=== PATIENT | male | born 1950 | race Caucasian/White ===

== ENCOUNTER 2018-05-07 13:57 | Observation (INO) | payer MEDICARE ==
[2018-05-07 14:39] LABS: #Basophils 0.1 thou/uL (0.0-0.2); #Eosinphils 0.1 thou/uL (0.0-0.7); #Lymphocytes 2.4 thou/uL (1.20-3.40); #Monocytes 0.5 thou/uL (0.11-0.59); %Basophils 0.6 % (0.0-1.0); %Eosinophils 1.6 % (0.0-10.0); %Lymphocytes 26.3 % (21.0-51.0); %Monocytes 5.6 % (0.0-10.0); %Neutrophils 65.9 % (42.0-75.0); Hemoglobin 12.9 g/dL (14.0-18.0); Mean Corpuscular HGB CONC 32.3 g/dL (32.0-36.0); Mean Corpuscular Hemoglobin 30.4 pg (27.0-31.0); Mean Corpuscular Volume 93.9 fL (78.0-98.0); Platelet Count 200 thou/uL (130-400); RBC Distribution Width 12.2 % (11.5-14.5); Red Blood Cell (RBC) Count 4.24 mill/uL (4.70-6.10); White Blood Cell (WBC) Count 9.1 thou/uL (4.8-10.8)
[2018-05-07 14:46] LABS: INR-International Normal Ratio 1.2; PTT 25.8 SEC (22.9-36.1); Prothrombin Time 14.8 SEC (12.0-14.7)
[2018-05-07 15:00] LABS: ALT (SGPT) 15 U/L (8-55); AST (SGOT) 14 U/L (5-34); Albumin 3.8 g/dL (3.4-4.8); Alkaline Phosphatase 62 U/L (40-150); Anion Gap 11 mmol/L (10-20); BUN (Urea Nitrogen) 25 mg/dL (8.4-25.7); Bilirubin, Total 0.8 mg/dL (0.2-1.2); Calc. Creatinine Clearance 0 mL/min (70-130); Calcium 8.5 mg/dL (7.8-10.44); Carbon Dioxide 23 mmol/L (23-31); Chloride 107 mmol/L (98-107); Estimated GFR-MDRD 52; Globulin 2.1 g/dL (2.4-3.5); Glucose 153 mg/dL (80-115); Potassium 4.2 mmol/L (3.5-5.1); Protein, Total 5.9 g/dL (5.8-8.1); Sodium 137 mmol/L (136-145)
[2018-05-07] MEDS ORDERED: GoLYTELY 4,000 ml Bottle PO SCH (15:30)
[2018-05-07] MEDS ORDERED: Acetaminophen 325 MG TAB PO PRN (15:59)
[2018-05-07 17:45] LABS: Hemoglobin 13.1 g/dL (14.0-18.0)
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
--- NOTE | 2018-05-07 19:16 | CON ---
DATE OF CONSULTATION: 05/07/2018 HISTORY: Patient is a 67-year-old male who underwent a colonoscopy with polypectomy on . He had a 4-mm polyp in the ascending colon. He was doing well until today when he was eati ng a hamburger. He had multiple bowel movements of bright red blood. This was associated with light headedness and near syncope, but he did not pass out. He denies any nausea, vomiting, any abdominal pain, any other complaints. PAST MEDICAL HISTORY: Significant for hypertension, myocardial infarction, hemorrhoids and cardiac s tents. ALLERGIES: SULFA. MEDICATIONS: Coreg 12.5 mg 1 p.o. daily, rosuvastatin 10 mg p.o. daily, aspirin 324 mg 1 p.o. daily, Plavix 75 mg 1 p.o. daily, lisinopril 20 mg 1 p.o. daily, Norvasc 5 mg p.o. daily. FAMILY HISTORY: Significant for mother with colon cancer. REVIEW OF SYSTEMS: Ten systems were reviewed and were negative except for above. PHYSICAL EXAM: GENERAL: Shows a well-developed, well-nourished white male in no acute distress. VITAL SIGNS: Stable. He is afebrile. HEENT: Unremarkable. NECK: Supple. CHEST: Clear. CARDIOVASCULAR: Regular rate and rhythm. ABDOMEN: Soft, nontender, without organomegaly or masses. Bowel sounds are present and normoactive. RECTAL: Deferred. EXTREMITIES: Normal. NEUROLOGIC: Nonfocal. LABORATORY DATA: Hemoglobin 12.9, hematocrit 39.8. PT is 14.8 with an INR of 1.2. Chemistries show creatinine 1.37, glucose 153. ASSESSMENT: 1. Post-polypectomy bleed. 2. Coronary artery disease, on aspirin and Plavix. RECOMMENDATIONS: Colonoscopy in a.m.
[2018-05-07] MEDS: Sodium Chloride 0.9% 1,000 ML IV SCH (20:14)
[2018-05-07 20:37] VITALS: BMI 25.2
[2018-05-07 21:20] LABS: Hemoglobin 12.4 g/dL (14.0-18.0)
[2018-05-08 01:26] LABS: Hemoglobin 11.6 g/dL (14.0-18.0)
[2018-05-08] MEDS: Sodium Chloride 0.9% 1,000 ML IV SCH (05:59)
[2018-05-08 06:07] LABS: Hemoglobin 11.9 g/dL (14.0-18.0)
[2018-05-08 06:23] LABS: Anion Gap 10 mmol/L (10-20); BUN (Urea Nitrogen) 14 mg/dL (8.4-25.7); Calc. Creatinine Clearance 100 mL/min (70-130); Calcium 8.5 mg/dL (7.8-10.44); Carbon Dioxide 25 mmol/L (23-31); Chloride 108 mmol/L (98-107); Estimated GFR-MDRD 86; Glucose 96 mg/dL (80-115); Potassium 3.8 mmol/L (3.5-5.1); Sodium 139 mmol/L (136-145)
[2018-05-08 10:01] LABS: Hemoglobin 11.2 g/dL (14.0-18.0)
--- NOTE | 2018-05-08 10:30 | OP ---
DATE OF PROCEDURE: 05/08/2018 PROCEDURE: After informed consent was obtained, the patient placed in the left lateral decubitus pos ition. Anesthesia administered per the Anesthesia Department. Forward-viewing colonoscope was inser rosales into the rectum after perianal inspection and rectal exam were normal and passed to the cecum wit h ease. The cecum, ileocecal valve, and appendiceal orifice were normal. The terminal ileum was nor mal. The prep was good. In the ascending colon, a post-polypectomy ulcer was noted in this ulcer wa s a visible vessel, no active bleeding was seen. A 10-[place]orean BICAP electrocautery device was used to ablate the vessel. The remainder of the ascending, transverse, descending, sigmoid, and rectum were normal. Retroflexion in rectum was normal. ASSESSMENT: 1. Post-polypectomy ulcer with a visible vessel -- status post control of hemorrhage with a 10-Frenc h BICAP probe. 2. Otherwise, normal ileal colonoscopy. RECOMMENDATIONS: 1. Stable for discharge from GI standpoint. 2. Hold aspirin and Plavix for 1 week.
[2018-05-08 11:35] VITALS: BP 146/93; TEMP 97.7
[2018-05-08] MEDS ORDERED: PROPOFOL 200 MG/20 ML VIAL ONE (12:47)
== END 2018-05-08 11:33 | disposition home or self-care (01) ==
LOC: ERS 13:57 → SURG A 15:12
PROVIDERS: ADMIT Internal Medicine; ATTEND Internal Medicine
PROC: 0D5K8ZZ Destruction of Ascending Colon, Via Natural or Artificial Opening Endoscopic (ICD-10-PCS; principal; 2018-05-08)
DX: K91.840 Postprocedural hemorrhage of a digestive system organ or structure following a digestive system procedure (principal); I25.10 Atherosclerotic heart disease of native coronary artery without angina pectoris; I10 Essential (primary) hypertension; E78.5 Hyperlipidemia, unspecified; I25.2 Old myocardial infarction; M54.10 Radiculopathy, site unspecified; Z87.891 Personal history of nicotine dependence; Z79.02 Long term (current) use of antithrombotics/antiplatelets; Z79.82 Long term (current) use of aspirin; Z79.899 Other long term (current) drug therapy; Z88.2 Allergy status to sulfonamides; Z95.5 Presence of coronary angioplasty implant and graft; Z98.1 Arthrodesis status; Z98.890 Other specified postprocedural states
CPT/HCPCS: 36430; 45388; 80048; 80053; 82274; 85014 ×3; 85018 ×3; 85025; 85610; 85730; 86850; 86900; 86901; 86920; 96360; 96361 ×2; 99285; G0378; P9016; P9035; 36415; J2704

== ENCOUNTER 2018-11-17 09:23 | Outpatient (CLI) | payer MEDICARE ==
--- NOTE | 2018-11-17 11:38 | CT ---
FCT ABDOMEN AND PELVIS WITH AND WITHOUT IV CONTRAST: HISTORY: Prostate cancer. Hematuria. FINDINGS: Each renal collecting system, ureter, and the urinary bladder are decompressed without stone evident. No filling defects are apparent within the urinary system on the delayed images. Tiny cyst along the lateral cortex superior pole left kidney. No solid renal masses are apparent. Fusiform ectasia of the lower abdominal aorta measuring up to 2.9 cm. Moderate arterial calcification . Along the anterior margin of the left internal iliac lymph node chain, there are 2 conspicuous lymph nodes, each measuring 0.7 cm greatest diameter. The distal third of the appendix, folded along the right posterolateral paracolic gutter, is filled w ith fluid and dilated up to 1.3 cm. A tiny calcification is present within the appendiceal apex. Ther e is no stranding in the adjacent fat or significant wall thickening apparent. IMPRESSION: 1. The left internal iliac lymph nodes, detailed above, are not significantly enlarged based on CT c riteria, but must be viewed with some degree of concern given the conspicuity and recent diagnosis of prostate cancer. 2. Fluid distention of the distal appendix without other signs of inflammation. Small appendicolith is present. The appearance is that of distal appendiceal obstruction. Patient would be predisposed to acute appendicitis. 3. Atherosclerosis with fusiform ectasia of the lower abdominal aorta. Transcribed Date/Time: 11/17/2018 11:47 AM
--- NOTE | 2018-11-17 13:59 | NM ---
WHOLE BODY BONE SCAN: CLINICAL HISTORY: Malignant neoplasm of prostate RADIOPHARMACEUTICAL: 31 mCi technetium 99m MDP, IV. FINDINGS: There is normal distribution of radiotracer activity. No scintigraphic abnormalities to indicate osse ous metastatic disease are present. There is mild scattered degenerative activity of the appendicular skeleton. IMPRESSION: No scintigraphic evidence of metastatic disease within the osseous structures. Transcribed Date/Time: 11/17/2018 2:07 PM
[2018-11-17] MEDS ORDERED: Iopamidol 370 76% 100 ML VIAL ONE (14:46)
== END 2018-11-17 09:24 | disposition home or self-care (01) ==
LOC: NM 09:23
PROVIDERS: ATTEND Urology
DX: C61 Malignant neoplasm of prostate (principal); I77.811 Abdominal aortic ectasia; I70.0 Atherosclerosis of aorta; K38.8 Other specified diseases of appendix
CPT/HCPCS: 74178; 78306; 82565; A9503

== ENCOUNTER 2018-12-16 08:19 | Outpatient (CLI) | payer MEDICARE ==
--- NOTE | 2018-12-16 11:02 | MRI ---
MR OF THE PELVIS WITH AND WITHOUT CONTRAST INDICATION: Prostate Cancer COMPARISON: CT the abdomen and pelvis dated 11/17/2018 and whole-body bone scan dated 11/27/2018 TECHNIQUE: Multiplanar, multisequence MR images were obtained of the pelvis with and without IV contr ast. 18 cc of MultiHance was utilized for the examination. The examination was reviewed on a separate Conzoom 3-D workstation for multiplanar metric evaluation. FINDINGS: Prostate size: The prostate measured 4.0 x 3.9 x 3.5cm. 28.47 cc. Peripheral zone: No area of restricted diffusion is seen within the peripheral zone. Central zone: There is a 2.9 x 2.1 cm low T2 signal lesion involving the medial left mid gland, left medial base, left lateral base and extending into the proximal left seminal vesicle. The lesions demonstrates restricted diffusion. Neural vasculature: No evidence of neurovascular invasion Regional lymphadenopathy: There are mildly prominent left internal iliac pelvic lymph nodes measuring 6.5 and 7 mm respectively on image 24 of series 8. No additional enlarged lymph nodes are evident. Dynamic contrast enhancement: The lesion previously identified demonstrates early enhancement that do es progress but does not washout. Therefore, the dynamic contrast enhancement will be labeled as negative. Osseous structures: There is a 1.5 cm low T1 signal intensity lesion within the proximal left femur a t the level of the lesser trochanter. No area of increased radiotracer accumulation is seen on the prior bone scan in this region. Retrospective review of the CT evaluation from 11/27/2018 demonstrates no definite focal lesion. Additional findings: None.. IMPRESSION: 1. PIRADS 5- Very High (clinically significant cancer is highly likely to be present.) 2. Mildly prominent left internal iliac pelvic lymph nodes is suspicious for regional malignant lymph adenopathy. 3. There is a low T1 signal intensity lesion within the proximal left femur that was not identified o n the prior bone scan or prior CT abdomen pelvis is suspicious for a new osseous metastatic lesion. Recommend consideration for repeat whole body bone scan to reevaluate this lesion and any new additio nal lesions that may be present within the skeletal system.
[2018-12-16] MEDS ORDERED: Gadobenate Dimeglumine 529 MG/1 ML (20ML VIAL) ONE (13:08)
== END 2018-12-16 08:20 | disposition home or self-care (01) ==
LOC: TBSIIMAG 08:19
PROVIDERS: ATTEND Urology
DX: C61 Malignant neoplasm of prostate (principal); R93.7 Abnormal findings on diagnostic imaging of other parts of musculoskeletal system
CPT/HCPCS: 72197; A9577

== ENCOUNTER 2018-12-23 10:20 | Outpatient (CLI) | payer MEDICARE ==
--- NOTE | 2018-12-23 14:21 | NM ---
WHOLE BODY BONE SCAN: HISTORY: Prostate cancer, malignant neoplasm of prostate RADIOPHARMACEUTICAL: 33 mCi technetium 99m-MDP injected intravenously COMPARISON:11/17/2018 CORRELATION: MRI pelvis 12/16/[address] abdomen and pelvis 11/17/2018 FINDINGS: Mild scattered degenerative activity in the appendicular skeleton is again seen.. No other abnormal areas of tracer localization is seen in the skeleton to suggest metastatic disease. Tracer excretion through the kidneys is within normal limits. IMPRESSION: No scintigraphic evidence of osseous metastatic disease.
== END 2018-12-23 10:21 | disposition home or self-care (01) ==
LOC: NM 10:20
PROVIDERS: ATTEND Urology
DX: C61 Malignant neoplasm of prostate (principal)
CPT/HCPCS: 78306; A9503

== ENCOUNTER 2019-04-27 18:34 | Emergency (ER) | payer MEDICARE ==
[2019-04-27 19:03] LABS: #Basophils 0.1 thou/uL (0.0-0.2); #Eosinphils 0.4 thou/uL (0.0-0.7); #Lymphocytes 0.9 thou/uL (1.20-3.40); #Monocytes 0.6 thou/uL (0.11-0.59); #Neutrophils 2.4 thou/uL (1.40-6.50); %Basophils 1.4 % (0.0-1.0); %Eosinophils 9.8 % (0.0-10.0); %Monocytes 13.9 % (0.0-10.0); %Neutrophils 53.9 % (42.0-75.0); Hemoglobin 12.8 g/dL (14.0-18.0); Mean Corpuscular HGB CONC 35.2 g/dL (32.0-36.0); Mean Corpuscular Hemoglobin 32.8 pg (27.0-31.0); Mean Corpuscular Volume 93.1 fL (78.0-98.0); Mean Platelet Volume 7.4 fL (7.4-10.4); Platelet Count 151 thou/uL (130-400); RBC Distribution Width 12.7 % (11.5-14.5); Red Blood Cell (RBC) Count 3.91 mill/uL (4.70-6.10); White Blood Cell (WBC) Count 4.5 thou/uL (4.8-10.8)
[2019-04-27 19:25] LABS: ALT (SGPT) 14 U/L (8-55); AST (SGOT) 14 U/L (5-34); Albumin 4.2 g/dL (3.4-4.8); Alkaline Phosphatase 81 U/L (40-150); Anion Gap 10 mmol/L (10-20); BUN (Urea Nitrogen) 20 mg/dL (8.4-25.7); Bilirubin, Total 0.5 mg/dL (0.2-1.2); Calc. Creatinine Clearance 0 mL/min (70-130); Calcium 9.3 mg/dL (7.8-10.44); Carbon Dioxide 28 mmol/L (23-31); Chloride 107 mmol/L (98-107); Estimated GFR-MDRD 64; Globulin 1.9 g/dL (2.4-3.5); Glucose 89 mg/dL (80-115); Potassium 3.8 mmol/L (3.5-5.1); Protein, Total 6.1 g/dL (5.8-8.1); Sodium 141 mmol/L (136-145)
--- NOTE | 2019-04-27 19:29 | RAD ---
EXAM: Chest 2 views: HISTORY: Chest pain COMPARISON: None. FINDINGS: There is a normal-sized cardiomediastinal silhouette. There is no evidence of consolidation, mass, or pleural effusion. Degenerative changes and postsurgical changes are seen in the spine. IMPRESSION: No evidence of acute cardiopulmonary disease
--- NOTE | 2019-05-02 13:52 | EKG ---
Test Reason : Blood Pressure : / mmHG Vent. Rate : 065 BPM Atrial Rate : 065 BPM P-R Int : 154 ms QRS Dur : 080 ms QT Int : 410 ms P-R-T Axes : 057 042 051 degrees QTc Int : 426 ms Normal sinus rhythm Normal ECG No ST elevation/MD Confirmed by KIMBERLY VANG, MAYTE ([id number]), online editor AMPARO EISENBERG ([id number] on 05/02/2019 1:52:08 PM Referred By: Confirmed By:MAYTE HARRIS MD
== END 2019-04-27 21:15 | disposition home or self-care (01) ==
LOC: ERS 18:34
DX: R07.89 Other chest pain (principal); I10 Essential (primary) hypertension; E78.00 Pure hypercholesterolemia, unspecified; Z87.891 Personal history of nicotine dependence; Z95.5 Presence of coronary angioplasty implant and graft
CPT/HCPCS: 36415; 71046; 80053; 82550; 84484; 85025; 93005

== ENCOUNTER 2020-09-15 08:52 | Outpatient (CLI) | payer MEDICARE ==
--- NOTE | 2020-09-15 13:46 | CT ---
CT ABDOMEN AND PELVIS WITH AND WITHOUT IV CONTRAST: 09/15/20 HISTORY: Hematuria for about one month. Prostate cancer with chemo and radiation. COMPARISON: 11/17/18. FINDINGS: The lung bases are clear. The liver, spleen, pancreas, and adrenal glands are normal. No calcified ga llstones are seen. No calculi noted in the kidneys, ureters, or the urinary bladder. Postcontrast images of the kidneys demonstrate a stable tiny cyst in the superior pole of the left kidney. No enhancing or new renal mas s is seen on either side. There is normal contrast excretion into the ureters and urinary bladder. No free air, free fluid, or lymphadenopathy is seen in the abdomen or pelvis. The prominent lymph nod es in the left pelvis noted on the previous study has resolved in the interim. There are vascular calcifications with a 3 cm infrarenal abdominal aortic aneurysm. There are degener ative changes in the spine. No osseous metastases are noted. IMPRESSION: 1. No CT evidence of urinary tract calculi/obstruction or suspicious renal mass. 2. No evidence of metastatic disease. 3. 3 cm infrarenal abdominal aortic aneurysm. POS: OFF
== END 2020-09-15 08:53 | disposition home or self-care (01) ==
LOC: BICCT 08:52
PROVIDERS: ATTEND Urology
DX: C61 Malignant neoplasm of prostate (principal); R31.0 Gross hematuria; I71.4 Abdominal aortic aneurysm, without rupture
CPT/HCPCS: 74178

== ENCOUNTER 2025-04-06 13:15 | Outpatient (CLI) | payer OTHER | END 2025-04-06 13:16 | disposition home or self-care (01) | LOC: PET 13:15 | PROVIDERS: ATTEND Urology | DX: C61 Malignant neoplasm of prostate (principal) | CPT/HCPCS: 78815; A9595 ==